=== PATIENT | male | born 1975 | race Caucasian/White ===

== ENCOUNTER 2018-05-08 15:49 | Emergency (ER) | payer BC, OTHER ==
[~2018-05-08] VITALS: Ht 182.9 cm; Wt 97.6 kg
[2018-05-08 15:52] VITALS: BP 131/84
[2018-05-08] MEDS ORDERED: BACITRACIN ZINC OINT 500U/GM, 0.9 GM ONE ×2 (16:13→18:21)
[2018-05-08] MEDS ORDERED: HYDROmorphone 2 MG/ML, 1ML ONE ×2 (16:18→18:24)
[2018-05-08] MEDS ORDERED: ONDANSETRON ODT 4 MG ONE (16:18)
[2018-05-08] MEDS ORDERED: HYDROmorphone 2 MG/ML, 1ML IM ONE (16:30)
[2018-05-08] MEDS ORDERED: ONDANSETRON ODT 4 MG PO ONE (16:30)
[2018-05-08] MEDS ORDERED: LISI-170 PO (16:35)
[2018-05-08] MEDS ORDERED: KETOROLAC 30 MG/1 ML ONE (17:52)
[2018-05-08] MEDS ORDERED: KETOROLAC 30 MG/1 ML IM ONE (18:00)
[2018-05-08] MEDS ORDERED: HYDROmorphone 1 MG/ML, 1ML IM ONE (18:30)
== END 2018-05-08 19:59 | disposition home or self-care (01) ==
LOC: ED 19:53
DX: S42.214A Unspecified nondisplaced fracture of surgical neck of right humerus, initial encounter for closed fracture (principal); S09.90XA Unspecified injury of head, initial encounter; S80.02XA Contusion of left knee, initial encounter; S80.01XA Contusion of right knee, initial encounter; I10 Essential (primary) hypertension; V19.49XA Pedal cycle driver injured in collision with other motor vehicles in traffic accident, initial encounter; Y93.89 Activity, other specified; Y92.89 Other specified places as the place of occurrence of the external cause; Y99.8 Other external cause status
CPT/HCPCS: 29105; 70160; 73030; 73060; 73080; 73110; 73502; 73564; 96372; 99283; J1170; J1885; Q0162

== ENCOUNTER 2021-01-09 22:15 | Emergency (ER) | payer OTHER ==
[~2021-01-09] VITALS: Ht 185.4 cm; Wt 95.6 kg
[~2021-01-09 22:15] MED LIST: LISI-170 PO
--- NOTE | 2021-01-09 22:29 | NUR ---
PT PRESENTS TO ER, PT STATES HE WENT TO [place] YESTERDAY AND HAS A SLAP TEAR IN HIS LEFT SHOULDER, PT STATES DR. JANG GAVE PT INJECTION INTO HIS SHOULDER, INJECTION WAS GIVEN IN THE [place] FOR PAIN, PT WAS PALE YESTERDAY, PT STATES HE HAS TAKEN ABOUT 6 GRAMS OF TYLENOL IN LESS THAN 24 HOURS AND IS WORRIED ABOUT HAVING AN ALLERGIC REACTION TO THE INJECTION AND THEN PT IS WORRIED ABOUT HAVING TAKEN TOO MUCH TYELENOL, PTS AT BEDSIDE
[2021-01-09] MEDS ORDERED: DIPHENHYDRAMINE 25 MG CAPSULE PO ONE (23:00)
[2021-01-09] MEDS ORDERED: LORazepam 1MG TABLET PO ONE (23:00)
[2021-01-09 23:03] LABS: BASOPHILS % (AUTO) 1 % (0-1); EOSINOPHILS % (AUTO) 0 % (1-7); LYMPHOCYTES % (AUTO) 13 % (22-44); MEAN CORPUSCULAR HEMOGLOBIN 30.7 pg (27.5-34.5); MEAN CORPUSCULAR HGB CONC 34.4 g/dL (33.2-36.2); MEAN PLATELET VOLUME 9.3 fL (7.4-10.4); MONOCYTES % (AUTO) 6 % (2-9); NEUTROPHILS % (AUTO) 81 % (42-75); PLATELET COUNT 240 x10^3/uL (130-400); RED BLOOD COUNT 4.71 x10^6/uL (4.38-5.82); RED CELL DISTRIBUTION WIDTH 13.2 % (9.4-14.8)
[2021-01-09] MEDS ORDERED: LORazepam 1MG TABLET ONE (23:08)
[2021-01-09] MEDS ORDERED: DIPHENHYDRAMINE 25 MG CAPSULE ONE (23:08)
[2021-01-09 23:13] LABS: ALANINE AMINOTRANSFERASE 28 U/L (12-78); ALBUMIN 3.9 g/dL (3.4-5.0); ANION GAP 7 mmol/L (5-15); CALCIUM 9.1 mg/dL (8.5-10.1); CHLORIDE 101 mmol/L (98-107); CREATININE 1.17 mg/dL (0.7-1.3)
--- NOTE | 2021-01-09 23:15 | NUR ---
PT LAYING IN BED, A/OX4, ALL NEEDS IN REACH, CALL LIGHT IN REACH, NAD AT THIS TIME, AT BEDSIDE, VSS
[2021-01-09 23:16] LABS: ALKALINE PHOSPHATASE 65 U/L (45-117); BILIRUBIN,TOTAL 0.5 mg/dL (0.2-1.0); TOTAL PROTEIN 7.7 g/dL (6.4-8.2)
--- NOTE | 2021-01-10 00:29 | NUR ---
PT REPORTS NO LONGER FEELING ITCHY, PTS VITALS STABLE, PT REPORTS FEELING MUCH BETTER, A/OX4
[2021-01-10 00:30] VITALS: BP 125/68
--- NOTE | 2021-01-10 23:03 | NUR ---
CHART ACCESS BY THROUGHPUT RN DUE TO PT GOING TO PHARMACY AND BEING UNABEL TO FILL PRESCRIPTION. RN FOLLOWED UP WITH [facility] WHO STATED THEIR SYSTEM WAS DOWN LAST NIGHT AND THEY WOULD CONTACT IT REGARDING NOT RECEIVING SCRIP. RN CALLED TO UPDATE FAMILY. FAMILY CALLED BACK A FEW HOURS LATER STATING IT WAS UNRESOLVED. RN CALLED [facility] AGAIN AND ASKED IF THEY WOULD ACCEPT A NEW FAXED SCRIPT. FAMILY CALLED AND UPDATE ON NEW SCRIPT. FAX NUMBER PROVIDED BY [facility] [phone]
== END 2021-01-10 00:37 | disposition home or self-care (01) ==
LOC: ED 23:00
DX: G89.29 Other chronic pain (principal); M25.511 Pain in right shoulder; F41.1 Generalized anxiety disorder; R94.31 Abnormal electrocardiogram [ECG] [EKG]; I10 Essential (primary) hypertension
CPT/HCPCS: 36415; 80053; 80299; 85025; 93005; 99284; Q0163